=== PATIENT | female | born 1980 | race Caucasian/White ===

== ENCOUNTER 2024-07-03 12:36 | Emergency (ER) | payer MEDICARE, MEDICAID, SELFPAY ==
[2024-07-03 12:51] VITALS: BP 129/81; PULSE 85; RESP 18; TEMP 36.6; O2SAT 96; BMI 31.6
--- NOTE | 2024-07-03 13:09 | ED.GENADULT ---
HPI - General Adult General Chief complaint: General Medical Stated complaint: Medical clearance Time Seen by Provider: 07/03/24 19:05 Source: patient Mode of arrival: ambulatory Limitations: no limitations History of Present Illness ED Provider: DR. Farias HPI narrative: A 43-year-old female was discharged from [facility] seeking rehab of substance abuse sent to our hospital for further medical clearance patient witnessed to have a seizure yesterday, known history of seizure patient take Keppra 500 mg b.i.d., patient declined any recent use of substance abuse. No SI, no HI, no hallucination. Related Data Home Medications ?Medication ?Instructions ?Recorded ?Confirmed clonidine HCl 0.2 mg tablet 0.2 mg PO BID 07/04/24 07/04/24 gabapentin 800 mg tablet 800 mg PO TID 07/04/24 07/04/24 levetiracetam 500 mg tablet 500 mg PO BID 07/04/24 07/04/24 levothyroxine 125 mcg tablet 125 mcg PO DAILY 07/04/24 07/04/24 methadone 10 mg/mL oral concentrate 135 mg PO DAILY 07/04/24 07/04/24 mirtazapine 45 mg tablet 45 mg PO BEDTIME 07/04/24 07/04/24 prazosin 2 mg capsule 2 mg PO BEDTIME 07/04/24 07/04/24 quetiapine 100 mg tablet 100 mg PO BEDTIME 07/04/24 07/04/24 Allergies Allergy/AdvReac Type Severity Reaction Status Date / Time Penicillins Allergy Unknown Verified 07/03/24 12:56 Review of Systems Review of Systems: All other systems are reviewed and are negative Constitutional: Reports as per HPI and Reports no additional constitutional complaints Eyes: Reports as per HPI and Reports no additional eye complaints Reports system reviewed and no additional complaints, except as documented Cardiovascular: Reports as per HPI and Reports no additional cardiovascular complaints Respiratory: Reports as per HPI and Reports no additional respiratory complaints Gastrointestinal: Reports as per HPI and Reports no additional gastrointestinal complaints Genitourinary: Reports no additional female genitourinary complaints Musculoskeletal: Reports no additional musculoskeletal complaints Skin/Breast: Reports system reviewed and no additional complaints, except as docu Psychiatric: Reports no additional psychiatric complaints Endocrine: Reports no additional endocrine complaints Hematologic/Lymphatic: Reports no additional hematologic/lymphatic complaints Allergic/Immunologic: Reports no additional allergic/immunologic complaints Reports system reviewed and no additional complaints, except as documented and Reports Abnormal speech present [facility] Social History Social History Unable to assess alcohol history related to: Unable to respond Smoked in Last 30 Days: Yes Use of substances other than those prescribed or required for medical reasons: Yes Substance Use Type: Marijuana and Other Substance Use Frequency: Chronic Longstanding Any prior treatment program specific to substance use: Yes Advance Directives: No Advance Directives Information Provided: No Do you have a plan to hurt others: No Plan Patient : No Physical Exam ED Vital Signs: Vital Signs - 24 hr 07/03/24 12:51 07/03/24 19:32 07/03/24 22:02 Temperature 97.9 F 97.6 F 97.9 F Pulse Rate 85 69 58 Respiratory Rate 18 18 18 Blood Pressure 129/81 91/62 97/64 Pulse Oximetry 96 98 95 Oxygen Delivery Method Room Air Room Air Room Air 07/04/24 02:16 07/04/24 06:03 07/04/24 08:00 Temperature 97.6 F 98.6 F Pulse Rate 82 85 91 Respiratory Rate 16 12 18 Blood Pressure 99/57 L 102/62 106/67 Pulse Oximetry 95 95 94 Oxygen Delivery Method Room Air Room Air Room Air 07/04/24 10:00 Temperature 99.0 F Pulse Rate 94 Respiratory Rate 18 Blood Pressure 108/71 Pulse Oximetry 96 Oxygen Delivery Method Room Air BMI result Body Mass Index 31.6 Vital signs have been reviewed and appear to be correct. Blood pressure elevated. Heart rate normal. Respiratory rate normal. Temperature normal. Oxygen saturation normal. Appearance: Alert. Oriented X3. No acute distress. Head: Normal external exam. Normocephalic. Atraumatic. No Ramírez signs noted. No raccoon eyes noted Eyes: PERRLA. EOMI. Conjunctiva and sclera normal. Eyelids normal. ENT: TM's Normal. Pharynx normal. Uvula midline. Moist mucous membranes. No trismus noted. No drooling noted. No muffled voice noted. Neck: Normal inspection. Neck supple. FROM. No adenopathy. Thyroid Normal. No meningeal signs. No neck mass noted. CVS: Normal heart rate and rhythm. Heart sound normal. No murmurs noted. Pulses normal throughout. Respiratory: No respiratory distress. Painless inspiration. Breath sounds normal. No wheezes/rales/rhonchi noted. Chest nontender. No accessory muscle usage noted or decreased air movement noted. Abdomen: Soft and nontender. Bowel sounds normal in all 4 quadrants. No distention noted. No organomegaly noted. No visible injury noted. Back: No CVA tenderness. Full range of motion noted. Skin: Skin warm and dry. Normal skin color. Normal skin turgor. No rashes/lesions/lacerations noted. Extremities: No lower extremity edema. Extremities exhibit normal range of motion. Extremities nontender. Neuro: Oriented X 3. Cranial nerve exam: II-XII are grossly intact No motor deficit. No sensory deficit. Reflexes normal. Course Course Course Narrative: RME: 43-year-old female sent from [facility] for suspicion of drug use. Patient denies having drug use but states she was having a seizure. Patient takes Keppra on Valium. [facility] denies any seziure activity. Patient denies using drugs. Patient is presently alert oriented x3. Labs ordered. Reevaluation(s) Reevaluation #1: Medical clearance for rehab placement. Start physician observation. Time: 20:00 Reevaluation #2: Berkley Fine PA-C: 0800 07/04/2024 - Observation continues. Patient awaiting assistance with possible detox placement. Medications Administered Generic Name Dose Route Start Last Admin Trade Name Freq PRN Reason Stop Dose Admin Methadone HCl 135 mg 07/04/24 09:45 07/04/24 11:08 Methadone Hcl 20 Mg/2 Ml Oral.Conc PO 135 mg DAILY AGUSTINA Administration Medical Decision Making Differential Diagnosis Differential Diagnoses: The differential diagnosis associated with the presentation includes (SI, HI, acute psychosis, substance abuse, medical clearance, severe anemia.) Admission/Observation Consideration of admission/observation: Escalation of care including admission/observation considered Lab Data MDM Lab Attestation statement: I reviewed the patient's lab results. 07/03/24 19:15 07/03/24 19:15 Labs: Lab Results 07/03/24 07/03/24 Range/Units 19:15 19:31 WBC 6.4 (4.8-10.8) X10*3/uL RBC 4.18 L (4.20-5.50) X10*6/uL Hgb 12.2 (12.0-16.0) g/dl Hct 36.1 L (37.0-47.0) % MCV 86.4 (80.0-98.0) fL MCH 29.2 (27.0-33.0) pg MCHC 33.8 (31.0-35.0) g/dl RDW 13.4 (11.0-16.0) % Plt Count 350 (160-400) X10*3/uL MPV 8.7 L (9.4-12.3) fL Immature Gran % (Auto) 0.3 (0.0-0.4) % Neut % (Auto) 55.5 (45-73) % Lymph % (Auto) 31.3 (20-40) % [place] % (Auto) 8.7 (2-11) % Eos % (Auto) 3.6 (0-4) % Baso % (Auto) 0.6 (0-2) % Lymph # (Auto) 2.0 (1.2-4.9) X10*3/uL [place] # (Auto) 0.6 (0.1-1.2) X10*3/uL Eos # (Auto) 0.2 (0.0-0.4) X10*3/uL Baso # (Auto) 0.0 (0.0-0.2) X10*3/uL Abs Immat Gran (auto) 0.02 (0.00-0.03) X10*3/uL Absolute Neuts (auto) 3.6 (2.0-8.3) x10*3/uL Absolute Nucleated RBC 0.000 (0.0-0.012) X10*3/uL Nucleated RBC % (auto) 0.0 (0.0-0.2) /100WBC Sodium 143 (135-145) mmol/L Potassium 3.7 (3.3-5.1) mmol/L Chloride 107 (96-108) mmol/L Carbon Dioxide 28 (22-29) mmol/L Anion Gap 12 (12-20) BUN 14 (9-16) mg/dL Creatinine 0.89 (0.5-1.4) mg/dL Estim Creat Clear Calc 76.7 Estimated GFR > 60 Random Glucose 146 H (60-115) mg/dL Calcium 9.3 (8.4-10.2) mg/dL Magnesium 2.0 (1.6-2.6) mg/dL Total Bilirubin 0.4 (0.0-1.0) mg/dL AST 96 H (5-31) U/L ALT 87 H (0-31) U/L Alkaline Phosphatase 171 H (39-117) U/L Total Protein 7.8 (6.5-8.0) g/dL Albumin 3.9 (3.5-5.0) g/dL Beta HCG, Quant < 2 mIU/mL Urine Color Dark Yellow Urine Appearance Cloudy Urine pH 6.5 (5.0-9.0) Ur Specific [place] 1.025 (1.005-1.025) Urine Protein Trace (Neg-Trace) mg/dL Urine Glucose (UA) Negative (Negative) mg/dL Urine Ketones Negative (Negative) mg/dL Urine Blood Negative (Negative) Urine Nitrite Negative (Negative) Ur Leukocyte Esterase Small (1+) H (Negative) Urine RBC 0-2 (0-2) /HPF Urine WBC 6-10 H (0-5) /HPF Ur Squamous Epith Cells 11-20 (0-2) /HPF Urine Bacteria 4+ (None Seen) Hyaline Casts 0-2 (0-2) /LPF Urine Opiates Screen Not Detected (Not Detect) Ur Buprenorphine Scrn Not Detected (Not Detect) ng/mL Ur Oxycodone Screen Not Detected (Not Detect) ng/mL Urine Methadone Screen Positive H (Not Detect) ng/mL Urine Fentanyl Screen Not Detected (Not Detect) Ur Barbiturates Screen Not Detected (Not Detect) Ur Phencyclidine Scrn POSITIVE H (Not Detect) Ur Amphetamines Screen Not Detected (Not Detect) U Benzodiazepines Scrn POSITIVE H (Not Detect) Urine Cocaine Screen Not Detected (Not Detect) U Marijuana (THC) Screen Not Detected (Not Detect) Ethyl Alcohol < 10 mg/dL Discharge Plan Discharge Clinical Impression: Substance abuse Patient Disposition: Still a Patient Prescriptions: No Action levetiracetam 500 mg tablet 500 mg PO BID quetiapine 100 mg tablet 100 mg PO BEDTIME clonidine HCl 0.2 mg tablet 0.2 mg PO BID gabapentin 800 mg tablet 800 mg PO TID levothyroxine 125 mcg tablet 125 mcg PO DAILY mirtazapine 45 mg tablet 45 mg PO BEDTIME prazosin 2 mg capsule 2 mg PO BEDTIME methadone 10 mg/mL Concentrate 135 mg PO DAILY Print Language: Lao
[2024-07-03 19:21] LABS: MANUAL DIFF FLAG NO
[2024-07-03 19:32] VITALS: BP 91/62; PULSE 69; RESP 18; TEMP 36.4; O2SAT 98
--- NOTE | 2024-07-03 19:35 | PC.NURSE ---
Patient ambulated to bathroom with steady gait. Urine specimen collected and sent to lab for analysis. Awaiting results. senior research project manager (Cindy) present.
[2024-07-03 19:38] LABS: Basophils Percent Auto 0.6 % (0-2); Eosinophils Absolute Auto 0.2 X10*3/uL (0.0-0.4); Eosinophils Percent Auto 3.6 % (0-4); Hematocrit 36.1 % (37.0-47.0); Hemoglobin 12.2 g/dl (12.0-16.0); Imm Gran Abs Auto 0.02 X10*3/uL (0.00-0.03); Imm Gran Pct Auto 0.3 % (0.0-0.4); Lymphocytes Percent Auto 31.3 % (20-40); Mean Corpuscular HGB Conc 33.8 g/dl (31.0-35.0); Mean Corpuscular Hemoglobin 29.2 pg (27.0-33.0); Mean Corpuscular Volume 86.4 fL (80.0-98.0); Mean Platelet Volume 8.7 fL (9.4-12.3); Monocytes Absolute Auto 0.6 X10*3/uL (0.1-1.2); Monocytes Percent Auto 8.7 % (2-11); Neutrophils Absolute Auto 3.6 x10*3/uL (2.0-8.3); Neutrophils Percent Auto 55.5 % (45-73); Platelet Count 350 X10*3/uL (160-400); Red Blood Count 4.18 X10*6/uL (4.20-5.50); Red Cell Distribution Width 13.4 % (11.0-16.0); White Blood Count 6.4 X10*3/uL (4.8-10.8)
[2024-07-03 19:39] LABS: Appearance Urine Cloudy; Color Urine Dark Yellow; Glucose Urine UA Negative (Negative); Leukocyte Esterase Urine Small (1+) (Negative); Nitrite Urine Negative (Negative); PH 6.5 (5.0-9.0); Specific Gravity - Urine 1.025 (1.005-1.025); UMIC TRIGGER UACC YES; Urine Blood Negative (Negative); Urine Ketones Negative (Negative); Urine Protein Trace mg/dL (Neg-Trace)
--- NOTE | 2024-07-03 19:41 | MHC.EDTECH ---
pt belongings in decon (multiple trash bags, cardboard box, luggages)
[2024-07-03 19:50] LABS: Amphetamine Screen Urine Not Detected (Not Detect); Barbiturates, Urine Not Detected (Not Detect); Benzodiazepines Screen Urine POSITIVE (Not Detect); Buprenorphine Scr Not Detected (Not Detect); Cannabinoid Screen Urine Not Detected (Not Detect); Cocaine Screen Urine Not Detected (Not Detect); Fentanyl, urine Not Detected (Not Detect); Methadone Screen, Urine Positive (Not Detect); Opiate Screen Urine Not Detected (Not Detect); Oxycodone Screen Urine Not Detected (Not Detect); Phencyclidine Screen Urine POSITIVE (Not Detect)
[2024-07-03 20:04] LABS: Albumin Level 3.9 g/dL (3.5-5.0); Alkaline Phosphatase 171 U/L (39-117); Aspartate Amino Transferase 96 U/L (5-31); Bilirubin Total 0.4 mg/dL (0.0-1.0); Blood Urea Nitrogen 14 mg/dL (9-16); Calcium 9.3 mg/dL (8.4-10.2); Creatinine Clr Calc Pharmacy 76.7; Estimated Glomerular Filt Rate > 60; Ethanol < 10 mg/dL; Glucose Random 146 mg/dL (60-115); Total Protein 7.8 g/dL (6.5-8.0)
[2024-07-03 20:16] LABS: Bacteria Urine 4+ (None Seen); Hyaline Casts Urine 0-2 /LPF (0-2); RBC Urine 0-2 /HPF (0-2); UACC Culture Trigger YES
--- NOTE | 2024-07-03 20:43 | PC.NURSE ---
Urine toxicology positive for PCP, Methadone, & Benzodiazepenes. Plan for the patient to meet with addiction medicine team tomorrow morning. Patient denies complaints at this time. Care ongoing by this RN & Cindy (home visit field care manager).
[2024-07-03 21:30] LABS: Alanine Aminotransferase 87 U/L (0-31); Anion Gap 12 (12-20); Carbon Dioxide 28 mmol/L (22-29); Chloride 107 mmol/L (96-108); Potassium 3.7 mmol/L (3.3-5.1); Sodium 143 mmol/L (135-145)
[2024-07-03 22:02] VITALS: BP 97/64; PULSE 58; RESP 18; TEMP 36.6; O2SAT 95
[2024-07-03 22:23] LABS: HCG Quantitative < 2 mIU/mL
--- NOTE | 2024-07-04 01:36 | PC.NURSE ---
Patient requested and given warm blanket. No other needs at this time. Care ongoing.
[2024-07-04 02:16] VITALS: BP 99/57; PULSE 82; RESP 16; TEMP 36.4; O2SAT 95
--- NOTE | 2024-07-04 02:30 | PC.NURSE ---
Patient has been sleeping the majority of this RN's shift. No acute distress noted. Respirations even/unlabored. Seizure pads/precautions remain in place. Awaiting addiction medicine consult in the morning. Arousable to verbal stimuli. Vital signs updated. Care ongoing by this RN.
[2024-07-04 06:03] VITALS: BP 102/62; PULSE 85; RESP 12; O2SAT 95
--- NOTE | 2024-07-04 06:08 | PC.NURSE ---
vital signs remain stable/up to date at this time. nsr on the tobacco buyer. pt continues to rest/sleep in no apparent distress. on RA w/o difficulty. no sob/wob noted. respirations even/unlabored. seizure precautions remain in place. pending addiction medicine consult at this time. plan of care ongoing. call ramirez placed within reach.
--- NOTE | 2024-07-04 07:12 | PC.NURSE ---
belongings/non-controlled medications found in patient's room. belongings obtained/placed in locker #11. rest of belongings still remain in decon at this time.
--- NOTE | 2024-07-04 07:16 | PC.NURSE ---
attempted to verify methadone dose at [facility] in [place] twice at this time. every time phone call was transferred to RN, someone hung up the phone. call back number provided to controls project engineer at this time.
[2024-07-04 08:00] VITALS: BP 106/67; PULSE 91; RESP 18; TEMP 37; O2SAT 94
--- NOTE | 2024-07-04 08:04 | PC.NURSE ---
This RN spoke w/ JUANA Sebastian at [facility] in [place] in regards to methadone dose at this time. Per Romulo, pt was last dosed on 06/28 @ 0808 w/ 135mg. Romulo then proceeded to state that pt was provided w/ 8, take home bottles of methadone. Per patient, [facility] did not provide patient w/ take home methadone when leaving facility. Attempted to call [facility] - no answer at this time. Voicemail left - will reattempt.
--- NOTE | 2024-07-04 08:30 | HE.PHANOTE ---
METHADONE CONFIRMATION FORM RECEIVED PATIENT GOT 135MG 07/03 FROM [facility]. PATIENT GOT 8 BOTTLES ON 06/28 FROM [facility]
--- NOTE | 2024-07-04 08:31 | PC.NURSE ---
pt speaking w/ debt recovery officer at this time. plan of care ongoing.
--- NOTE | 2024-07-04 08:46 | MHC.RECOVSUP ---
Rod Pointer Note Patient seen in ED Consult requested for?ATS referral? Current substance use reported by patient: PCP?? Currently on MAURO or MOUD Yes: Methadone Plan:? Patient referred to ATS
[2024-07-04 10:00] VITALS: BP 108/71; PULSE 94; RESP 18; TEMP 37.2; O2SAT 96
--- NOTE | 2024-07-04 10:28 | PHA.MEDREC ---
Addendum entered by Hiren Garza RPh 07/04/24 10:49: MED REC CHECKED BY [facility] Original Note: Pharmacy Consult ? Medication Reconciliation Pharmacy reviewed med rec done by nursing. Claims matches what was confirmed.Clonidine 0.2mg had no directions and I called patients pharmacy and was able to confirm the directions states there they should be taking it 1 BID.
[2024-07-04] MEDS: methADONE HCl 20 MG/2 ML ORAL.CONC 135 MG PO (11:08)
--- NOTE | 2024-07-04 11:08 | PC.NURSE ---
delay in methadone administration d/t medication not being verified. medication now administered per provider order. pt having care team consult completed at this time.
--- NOTE | 2024-07-04 11:49 | MHC.RECOVSUP ---
Education Diagnostician Note Patient seen in ED Consult requested for ATS referral? Current substance use reported by patient: PCP Type?Amount: Smoked... past 1 month Currently on MAURO or MOUD Yes: 135mgs Methadone Plan:? Patient has now declined ATS referral to [facility]. (Her application is currently being reviewed by the nurse), and would instead like to be transported to [place]. Will make [facility] aware if they call me back.
[2024-07-04 12:00] VITALS: BP 107/70; PULSE 95; RESP 16; TEMP 37.1; O2SAT 94
[2024-07-04] MEDS: Gabapentin 400 MG CAPSULE 800 MG PO (12:17)
[2024-07-04] MEDS: levETIRAcetam 500 MG TABLET PO (12:17)
[2024-07-04] MEDS: diazePAM 2 MG TABLET PO (12:17)
--- NOTE | 2024-07-04 12:18 | MHC.CARE ---
Pt does not meet criteria for IPLOC and does not present as an imminent risk. Pt declined all services.
[2024-07-04] MEDS: Naloxone HCl Nasal TAKE HOME 4 MG SPRAY 8 MG NOSTRILALT (12:24)
[2024-07-04 13:10] VITALS: BP 107/70; PULSE 95; RESP 16; TEMP 37.1; O2SAT 94
--- NOTE | 2024-07-04 13:34 | MHC.RECOVRN ---
Pt declined services and was sent to [address] [place] [address] in [place] via [employer].
== END 2024-07-04 13:11 | disposition home or self-care (01) ==
PROVIDERS: Physician Assistant; Emergency Provider Emergency Medicine
DX: F19.10 Other psychoactive substance abuse, uncomplicated (principal); Z02.2 Encounter for examination for admission to residential institution; F11.20 Opioid dependence, uncomplicated; Z79.899 Other long term (current) drug therapy
CPT/HCPCS: 36415; 80053; 80307; 81001; 83735; 84702; 85025; 87086; 99284; 99285; S9485

== ENCOUNTER 2025-03-24 14:40 | Emergency (ER) | payer MEDICARE, MEDICAID, SELFPAY ==
[2025-03-24 14:50] VITALS: BP 101/65; PULSE 71; RESP 12; TEMP 36.1; O2SAT 96; BMI 30.4
--- NOTE | 2025-03-24 14:50 | ED.GENADULT ---
HPI - General Adult General Chief complaint: Medical Clearance Stated complaint: medical clearence Time Seen by Provider: 03/24/25 16:35 Related Data Home Medications ?Medication ?Instructions ?Recorded ?Confirmed clonidine HCl 0.2 mg tablet 0.2 mg PO BID 07/04/24 07/04/24 gabapentin 800 mg tablet 800 mg PO TID 07/04/24 07/04/24 levetiracetam 500 mg tablet 500 mg PO BID 07/04/24 07/04/24 levothyroxine 125 mcg tablet 125 mcg PO DAILY 07/04/24 07/04/24 methadone 10 mg/mL oral concentrate 135 mg PO DAILY 07/04/24 07/04/24 mirtazapine 45 mg tablet 45 mg PO BEDTIME 07/04/24 07/04/24 prazosin 2 mg capsule 2 mg PO BEDTIME 07/04/24 07/04/24 quetiapine 100 mg tablet 100 mg PO BEDTIME 07/04/24 07/04/24 Allergies Allergy/AdvReac Type Severity Reaction Status Date / Time Penicillins Allergy Unknown Verified 03/24/25 14:51 [facility] Social History Social History Unable to assess alcohol history related to: Unable to respond Substance Use Type: Marijuana and Other Advance Directives: No Advance Directives Information Provided: No Physical Exam ED Vital Signs: Vital Signs - 24 hr 03/24/25 14:50 03/24/25 16:57 03/24/25 16:59 Temperature 97 F 97.6 F 98.6 F Pulse Rate 71 70 67 Respiratory Rate 12 16 16 Blood Pressure 101/65 108/62 98/64 Pulse Oximetry 96 96 94 Oxygen Delivery Method Room Air Room Air BMI result Body Mass Index 30.4 Course Course Course Narrative: Rapid medical examination performed in triage by Berkley Fine PA-C. Patient is a 44 year old assigned female at presenting to the emergency department for medical clearance. Patient states Miracle is concerned she took too much of her medication and requested she come to the ER to be cleared. Patient states that she is prescribed valium and takes it as directed. Detailed physical exam and review of systems are deferred to the dobby loom weaver. EKG and labs ordered. Patient placed back in the waiting room pending room availability and results. Medications Administered Generic Name Dose Route Start Last Admin Trade Name Freq PRN Reason Stop Dose Admin Sodium Chloride 1,000 mls @ 999 mls/hr 03/24/25 19:45 03/24/25 19:57 Ns IV 03/24/25 20:45 Not Given .Q1H1M [facility] Sodium Chloride 1,000 mls @ 999 mls/hr 03/24/25 19:45 03/24/25 19:57 Ns IV 03/24/25 20:45 Not Given .Q1H1M [facility] Medical Decision Making Lab Data 03/24/25 15:01 03/24/25 15:01 Labs: Lab Results 03/24/25 03/24/25 Range/Units 15:01 15:08 WBC 8.0 (4.8-10.8) X10*3/uL RBC 4.44 (4.20-5.50) X10*6/uL Hgb 12.9 (12.0-16.0) g/dl Hct 39.1 (37.0-47.0) % MCV 88.1 (80.0-98.0) fL MCH 29.1 (27.0-33.0) pg MCHC 33.0 (31.0-35.0) g/dl RDW 14.3 (11.0-16.0) % Plt Count 249 D (160-400) X10*3/uL MPV 9.2 L (9.4-12.3) fL Immature Gran % (Auto) 0.4 (0.0-0.4) % Neut % (Auto) 53.8 (45-73) % Lymph % (Auto) 35.3 (20-40) % [place] % (Auto) 6.9 (2-11) % Eos % (Auto) 3.1 (0-4) % Baso % (Auto) 0.5 (0-2) % Lymph # (Auto) 2.8 (1.2-4.9) X10*3/uL [place] # (Auto) 0.6 (0.1-1.2) X10*3/uL Eos # (Auto) 0.3 (0.0-0.4) X10*3/uL Baso # (Auto) 0.0 (0.0-0.2) X10*3/uL Abs Immat Gran (auto) 0.03 (0.00-0.03) X10*3/uL Absolute Neuts (auto) 4.3 (2.0-8.3) x10*3/uL Absolute Nucleated RBC 0.000 (0.0-0.012) X10*3/uL Nucleated RBC % (auto) 0.0 (0.0-0.2) /100WBC Sodium 143 (135-145) mmol/L Potassium 4.1 (3.3-5.1) mmol/L Chloride 105 (96-108) mmol/L Carbon Dioxide 27 (22-29) mmol/L Anion Gap 15 (12-20) BUN 16 (9-16) mg/dL Creatinine 1.20 (0.5-1.4) mg/dL Estim Creat Clear Calc 55.2 Estimated GFR 49 Random Glucose 138 H (60-115) mg/dL Calcium 9.4 (8.4-10.2) mg/dL Magnesium 2.0 (1.6-2.6) mg/dL Total Bilirubin 0.4 (0.0-1.0) mg/dL AST 58 H (5-31) U/L ALT 57 H (0-31) U/L Alkaline Phosphatase 88 (39-117) U/L Total Protein 8.4 H (6.5-8.0) g/dL Albumin 4.7 (3.5-5.0) g/dL Urine Opiates Screen Not Detected (Not Detect) Ur Buprenorphine Scrn Not Detected (Not Detect) ng/mL Ur Oxycodone Screen Not Detected (Not Detect) ng/mL Urine Methadone Screen Positive H (Not Detect) ng/mL Urine Fentanyl Screen Not Detected (Not Detect) Ur Barbiturates Screen Not Detected (Not Detect) Ur Phencyclidine Scrn POSITIVE H (Not Detect) Ur Amphetamines Screen Not Detected (Not Detect) U Benzodiazepines Scrn POSITIVE H (Not Detect) Urine Cocaine Screen Not Detected (Not Detect) U Marijuana (THC) Screen Not Detected (Not Detect) Ethyl Alcohol < 10 mg/dL Discharge Plan Discharge Clinical Impression: Accidental drug overdose Patient Disposition: Home, Self-Care Prescriptions: No Action levetiracetam 500 mg tablet 500 mg PO BID quetiapine 100 mg tablet 100 mg PO BEDTIME clonidine HCl 0.2 mg tablet 0.2 mg PO BID gabapentin 800 mg tablet 800 mg PO TID levothyroxine 125 mcg tablet 125 mcg PO DAILY mirtazapine 45 mg tablet 45 mg PO BEDTIME prazosin 2 mg capsule 2 mg PO BEDTIME methadone 10 mg/mL Concentrate 135 mg PO DAILY Referrals: Berry Ortega MD [Primary Care Provider, Internal Medicine] - 03/27/25 Print Language: Lao
[2025-03-24 15:05] LABS: MANUAL DIFF FLAG NO
[2025-03-24 15:08] LABS: Hematocrit 39.1 % (37.0-47.0); Hemoglobin 12.9 g/dl (12.0-16.0); Imm Gran Abs Auto 0.03 X10*3/uL (0.00-0.03); Imm Gran Pct Auto 0.4 % (0.0-0.4); Lymphocytes Absolute Auto 2.8 X10*3/uL (1.2-4.9); Mean Corpuscular HGB Conc 33.0 g/dl (31.0-35.0); Mean Corpuscular Hemoglobin 29.1 pg (27.0-33.0); Mean Corpuscular Volume 88.1 fL (80.0-98.0); NRBC Abs Auto 0.000 X10*3/uL (0.0-0.012); NRBC Pct Auto 0.0 /100WBC (0.0-0.2); Platelet Count 249 X10*3/uL (160-400); Red Blood Count 4.44 X10*6/uL (4.20-5.50); White Blood Count 8.0 X10*3/uL (4.8-10.8)
[2025-03-24 15:27] LABS: Cannabinoid Screen Urine Not Detected (Not Detect)
[2025-03-24 15:47] LABS: Alanine Aminotransferase 57 U/L (0-31); Albumin Level 4.7 g/dL (3.5-5.0); Alkaline Phosphatase 88 U/L (39-117); Anion Gap 15 (12-20); Aspartate Amino Transferase 58 U/L (5-31); Blood Urea Nitrogen 16 mg/dL (9-16); Calcium 9.4 mg/dL (8.4-10.2); Carbon Dioxide 27 mmol/L (22-29); Chloride 105 mmol/L (96-108); Creatinine Clr Calc Pharmacy 55.2; Estimated Glomerular Filt Rate 49; Magnesium 2.0 mg/dL (1.6-2.6); Potassium 4.1 mmol/L (3.3-5.1); Sodium 143 mmol/L (135-145); Total Protein 8.4 g/dL (6.5-8.0)
[2025-03-24 16:57] VITALS: BP 108/62; PULSE 70; RESP 16; TEMP 36.4; O2SAT 96
[2025-03-24 16:59] VITALS: BP 98/64; PULSE 67; RESP 16; TEMP 37; O2SAT 94
--- NOTE | 2025-03-24 17:00 | PC.NURSE ---
Pt to [facility] from triage, resting quietly on stretcher with eyes closed. Resp even/unlabored. Pt very lethargic, but arousable to name/touch and able to follow commands.
--- NOTE | 2025-03-24 19:27 | PC.NURSE ---
this rn assumed care of pt , pt resting in stretcher, isi, at bedside, pt appears sleeping but wakes to name to have conversation
--- NOTE | 2025-03-24 19:35 | ED.MEDCLEAR ---
HPI - Medical Clearance General Chief complaint: Medical Clearance Stated complaint: medical clearence Time Seen by Provider: 03/24/25 16:35 History of Present Illness HPI Narrative: Patient is a 44-year-old female presents today they were concerned she took too much Valium. Patient denies any suicidal homicidal ideations. No fever no chills no chest pain or shortness breath no systemic complaints. Patient denies using other recreational drugs. From home. Denies drinking. Claims he last took her Valium was in the morning. Related Information Home Medications ?Medication ?Instructions ?Recorded ?Confirmed clonidine HCl 0.2 mg tablet 0.2 mg PO BID 07/04/24 07/04/24 gabapentin 800 mg tablet 800 mg PO TID 07/04/24 07/04/24 levetiracetam 500 mg tablet 500 mg PO BID 07/04/24 07/04/24 levothyroxine 125 mcg tablet 125 mcg PO DAILY 07/04/24 07/04/24 methadone 10 mg/mL oral concentrate 135 mg PO DAILY 07/04/24 07/04/24 mirtazapine 45 mg tablet 45 mg PO BEDTIME 07/04/24 07/04/24 prazosin 2 mg capsule 2 mg PO BEDTIME 07/04/24 07/04/24 quetiapine 100 mg tablet 100 mg PO BEDTIME 07/04/24 07/04/24 Allergies Allergy/AdvReac Type Severity Reaction Status Date / Time Penicillins Allergy Unknown Verified 03/24/25 14:51 Review of Systems Review of Systems: No chest pain or shortness breath no diaphoresis PMFSH Past Medical History Attestation statement: The following information was validated with the patient. Social History Social History Unable to assess alcohol history related to: Unable to respond Substance Use Type: Marijuana and Other Advance Directives: No Advance Directives Information Provided: No Physical Exam Exam: Exam: Appearance: Alert. Oriented X3. No acute distress. Eyes: Pupils equal, round and reactive to light. ENT: Pharynx normal. Neck: Normal inspection. Neck supple. No lymph nodes noted. No crepitus CVS: Normal heart rate and rhythm. Pulses normal. Normal S1 and S2 Respiratory: No respiratory distress. Breath sounds normal. No Wheezing. No rales Abdomen: Soft and nontender. No rigidity. No distention. good BS x4 Skin: Skin warm and dry. Normal skin color. Normal skin turgor. Extremities: No lower extremity edema. Neurovascular intact to all extremities. No Lacerations. No Rash Neuro: Oriented X 3. No motor deficit. No sensory deficit. Moving all extermities. No slurred speech Vital Signs: Vital Signs: Last Vital Signs Temp 98.6 F 03/24/25 16:59 Pulse 67 03/24/25 16:59 Resp 16 03/24/25 16:59 BP 98/64 03/24/25 16:59 Pulse Ox 94 03/24/25 16:59 O2 Del Method Room Air 03/24/25 16:59 BMI result Body Mass Index 30.4 Medications Administered Generic Name Dose Route Start Last Admin Trade Name Freq PRN Reason Stop Dose Admin Sodium Chloride 1,000 mls @ 999 mls/hr 03/24/25 19:45 03/24/25 19:57 Ns IV 03/24/25 20:45 Not Given .Q1H1M AGUSTINA Sodium Chloride 1,000 mls @ 999 mls/hr 03/24/25 19:45 03/24/25 19:57 Ns IV 03/24/25 20:45 Not Given .Q1H1M AGUSTINA Medical Decision Making Medical Decision Making [facility] Narrative: Well-appearing no acute distress lethargic patient's white count is normal. Electrolytes fairly unremarkable. Patient's tox screen came back positive for methadone which she is on. Positive for PCP positive for benzos. Will give additional IV fluids and hydrate. Patient's alcohol was less than 10. In stable condition. Patient monitor in the ER for few hours. Is awake alert no distress. Wants to go with family. Patient is in stable condition not suicidal not homicidal. Differential Diagnosis Differential Diagnoses: The differential diagnosis associated with the presentation includes Admission/Observation Consideration of admission/observation: Escalation of care including admission/observation considered Consult Healthcare Provider Additional history obtained through patient's family Lab Data [facility] Lab Attestation statement: I reviewed the patient's lab results. 03/24/25 15:01 03/24/25 15:01 Labs: Lab Results 03/24/25 03/24/25 Range/Units 15:01 15:08 WBC 8.0 (4.8-10.8) X10*3/uL RBC 4.44 (4.20-5.50) X10*6/uL Hgb 12.9 (12.0-16.0) g/dl Hct 39.1 (37.0-47.0) % MCV 88.1 (80.0-98.0) fL MCH 29.1 (27.0-33.0) pg MCHC 33.0 (31.0-35.0) g/dl RDW 14.3 (11.0-16.0) % Plt Count 249 D (160-400) X10*3/uL MPV 9.2 L (9.4-12.3) fL Immature Gran % (Auto) 0.4 (0.0-0.4) % Neut % (Auto) 53.8 (45-73) % Lymph % (Auto) 35.3 (20-40) % [place] % (Auto) 6.9 (2-11) % Eos % (Auto) 3.1 (0-4) % Baso % (Auto) 0.5 (0-2) % Lymph # (Auto) 2.8 (1.2-4.9) X10*3/uL [place] # (Auto) 0.6 (0.1-1.2) X10*3/uL Eos # (Auto) 0.3 (0.0-0.4) X10*3/uL Baso # (Auto) 0.0 (0.0-0.2) X10*3/uL Abs Immat Gran (auto) 0.03 (0.00-0.03) X10*3/uL Absolute Neuts (auto) 4.3 (2.0-8.3) x10*3/uL Absolute Nucleated RBC 0.000 (0.0-0.012) X10*3/uL Nucleated RBC % (auto) 0.0 (0.0-0.2) /100WBC Sodium 143 (135-145) mmol/L Potassium 4.1 (3.3-5.1) mmol/L Chloride 105 (96-108) mmol/L Carbon Dioxide 27 (22-29) mmol/L Anion Gap 15 (12-20) BUN 16 (9-16) mg/dL Creatinine 1.20 (0.5-1.4) mg/dL Estim Creat Clear Calc 55.2 Estimated GFR 49 Random Glucose 138 H (60-115) mg/dL Calcium 9.4 (8.4-10.2) mg/dL Magnesium 2.0 (1.6-2.6) mg/dL Total Bilirubin 0.4 (0.0-1.0) mg/dL AST 58 H (5-31) U/L ALT 57 H (0-31) U/L Alkaline Phosphatase 88 (39-117) U/L Total Protein 8.4 H (6.5-8.0) g/dL Albumin 4.7 (3.5-5.0) g/dL Urine Opiates Screen Not Detected (Not Detect) Ur Buprenorphine Scrn Not Detected (Not Detect) ng/mL Ur Oxycodone Screen Not Detected (Not Detect) ng/mL Urine Methadone Screen Positive H (Not Detect) ng/mL Urine Fentanyl Screen Not Detected (Not Detect) Ur Barbiturates Screen Not Detected (Not Detect) Ur Phencyclidine Scrn POSITIVE H (Not Detect) Ur Amphetamines Screen Not Detected (Not Detect) U Benzodiazepines Scrn POSITIVE H (Not Detect) Urine Cocaine Screen Not Detected (Not Detect) U Marijuana (THC) Screen Not Detected (Not Detect) Ethyl Alcohol < 10 mg/dL Independent Historian Clinical information obtained from an independent historian. History obtained from or confirmed by: EMS Chronic Conditions Polysubstance abuse Social Determinants Patient?s care significantly limited by Social Determinants of Health including: Problems related to primary support group Discharge Plan Discharge Clinical Impression: Accidental drug overdose Patient Disposition: Home, Self-Care Prescriptions: No Action levetiracetam 500 mg tablet 500 mg PO BID quetiapine 100 mg tablet 100 mg PO BEDTIME clonidine HCl 0.2 mg tablet 0.2 mg PO BID gabapentin 800 mg tablet 800 mg PO TID levothyroxine 125 mcg tablet 125 mcg PO DAILY mirtazapine 45 mg tablet 45 mg PO BEDTIME prazosin 2 mg capsule 2 mg PO BEDTIME methadone 10 mg/mL Concentrate 135 mg PO DAILY Referrals: Berry Ortega MD [Primary Care Provider, Internal Medicine] - 03/27/25 Print Language: Tamazight
--- NOTE | 2025-03-24 19:56 | PC.NURSE ---
this rn attempted iv on pt x2, pt refusing other sticks at this time, dr. decker aware, plan for PO fluids at this time, sandwich and drinks given to pt.
[2025-03-24 20:32] VITALS: BP 101/65; PULSE 85; RESP 18; TEMP 37.1; O2SAT 98
== END 2025-03-24 20:33 | disposition home or self-care (01) ==
PROVIDERS: Physician Assistant Medical; Emergency Provider Emergency Medicine Emergency Medical Services; PCP Family Medicine
DX: T42.4X1A Poisoning by benzodiazepines, accidental (unintentional), initial encounter (principal); Y92.9 Unspecified place or not applicable; Z63.9 Problem related to primary support group, unspecified
CPT/HCPCS: 36415; 80053; 80307; 83735; 85025; 99283

== ENCOUNTER 2025-03-29 10:39 | Emergency (ER) | payer MEDICARE, MEDICAID, SELFPAY ==
[2025-03-29 10:48] VITALS: BP 126/76; BP 92/56; PULSE 69; PULSE 72; RESP 16; TEMP 36.8; O2SAT 93; O2SAT 95; BMI 32.7
[2025-03-29 10:57] VITALS: BP 92/56; PULSE 69; RESP 16; TEMP 36.8; O2SAT 93
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
[2025-03-29] MEDS: Lactated Ringers 1,000 ML 999 ML IV ×2 (11:46→11:47)
--- NOTE | 2025-03-29 11:46 | ECG_ITS ---
Test Reason : CHELE Blood Pressure : */* mmHG Vent. Rate : 62 BPM Atrial Rate : 62 BPM P-R Int : 148 ms QRS Dur : 72 ms QT Int : 516 ms P-R-T Axes : 49 47 42 degrees QTcB Int : 523 ms Normal sinus rhythm Low voltage QRS Nonspecific T wave abnormality Prolonged QT Abnormal ECG No previous ECGs available Referred By: Nighat Cabral Electronically Signed By: CLINT QUINONES
[2025-03-29 11:49] LABS: MANUAL DIFF FLAG NO
[2025-03-29 11:50] LABS: Hematocrit 37.7 % (37.0-47.0); Hemoglobin 12.4 g/dl (12.0-16.0); Imm Gran Abs Auto 0.02 X10*3/uL (0.00-0.03); Imm Gran Pct Auto 0.2 % (0.0-0.4); Lymphocytes Absolute Auto 2.6 X10*3/uL (1.2-4.9); Mean Corpuscular HGB Conc 32.9 g/dl (31.0-35.0); Mean Corpuscular Hemoglobin 29.3 pg (27.0-33.0); Mean Corpuscular Volume 89.1 fL (80.0-98.0); NRBC Abs Auto 0.000 X10*3/uL (0.0-0.012); NRBC Pct Auto 0.0 /100WBC (0.0-0.2); Platelet Count 218 X10*3/uL (160-400); Red Blood Count 4.23 X10*6/uL (4.20-5.50); White Blood Count 8.2 X10*3/uL (4.8-10.8)
[2025-03-29 12:09] LABS: Acetaminophen LAB < 3 mcg/mL (<30); Salicylate < 5.0 mg/dL (15-30)
[2025-03-29 12:10] LABS: Alanine Aminotransferase 57 U/L (0-31); Albumin Level 4.3 g/dL (3.5-5.0); Alkaline Phosphatase 85 U/L (39-117); Anion Gap 9 (12-20); Aspartate Amino Transferase 55 U/L (5-31); Blood Urea Nitrogen 12 mg/dL (9-16); Calcium 9.4 mg/dL (8.4-10.2); Carbon Dioxide 33 mmol/L (22-29); Chloride 106 mmol/L (96-108); Creatinine Clr Calc Pharmacy 64.2; Estimated Glomerular Filt Rate 56; Magnesium 1.7 mg/dL (1.6-2.6); Potassium 4.2 mmol/L (3.3-5.1); Sodium 144 mmol/L (135-145); Total Protein 7.4 g/dL (6.5-8.0)
--- NOTE | 2025-03-29 12:33 | PC.NURSE ---
Received call from Yasmine Davison admissions supervisor @ [facility]. Yasmine informed this RN that patient will be discharged from [facility] as she needs higher level of care then they can provide. Provider notified.
[2025-03-29 12:53] VITALS: BP 91/55; PULSE 63; RESP 18; O2SAT 95
[2025-03-29 13:07] LABS: VBG HCO3 28 mmol/L (22-26); VBG O2 % Saturation 100.0 %
[2025-03-29 13:09] LABS: Venous Blood Gas Refer to POC result
[2025-03-29] MEDS: Magnesium Sulfate/H2O 2 GM/50 ML PIGGYBACK IV (13:11)
--- OUTSIDE RECORDS SUMMARY | 2025-03-29 13:48 | XMS_ITS | Clinical Summary ---
Author Organization [facility] Address [address] [place] [address] Care Team Providers Care [employer] Name Role Phone Ref, Has No Pcp Or Primary Care Provider Unavail able Allergies Active Allergy Reactions Criticality Noted Date Comments Penicillins Anaphylaxis High 01/08/2025 Encounters Date Type Department Care Team Description 02/24/2025 12:05 PM EDT - 02/24/2025 4:18 PM EDT Emergency [facility] Emergency Department [address] [place] [id number] Sukhjinder Tena MD Lima-Babigian, Rochelle, MD Overdose of undetermined intent, initial encounter (Primary Dx) Discharge Disposition: Home or Self Care (01) 01/08/2025 3:17 PM EDT - 01/08/2025 4:08 PM EDT Emergency [facility] Emergency Department [address] [place] [address] Mina Carter MD Encounter for medical screening examination (Primary Dx); Stress reaction Discharge Disposition: Psychiatric Hospital (INPT Psych facility/unit) (65) from Last 3 Months Social History Tobacco Use Types Packs/Day Years Used Date Smoking Tobacco: Former Cigarettes Smokeless Tobacco: Never Tobacco Cessation:Counseling Given: Not Answered Alcohol Use Standard Drinks/Week Comments Not Currently 0 (1 standard drink = 0.6 oz pur e alcohol) Comments Unknown Sex and Gender Information Value Date Recorded Sex Assigned at Female 01/08/2025 3:24 PM EDT Legal Sex Female 2:36 PM EDT Gender Identity Not on file Sexual Orientation Not on file Last Filed Vital Signs Vital Sign Reading Time Taken Comments Blood Pressure 108/79 02/24/2025 12:48 PM EDT Pulse 68 02/24/2025 12:21 PM EDT Temperature 37.5 C (99.5 F) 02/24/2025 12:48 PM EDT Respiratory Rate 18 01/08/2025 2:39 PM EDT Oxygen Saturation 96% 02/24/2025 12:48 PM EDT Inhaled Oxygen Concentration - - Weight 57.2 kg (126 lb) 01/08/2025 2:39 PM EDT Height 154.9 cm (5' 1 ) 01/08/2025 2:39 PM EDT Body Mass Index 23.81 01/08/2025 2:39 PM EDT Plan of Treatment Health Maintenance Due Date Last Done Comments Cervical Cancer Screening 1981 HIV Screening 1981 HPV and Pap Smear 1981 Hepatitis C Screening 1981 Pap Smear 1981 Medicare AWV 1982 Varicella Vaccines (1 of 2 - 13+ 2-dose series) 1993 Hepatitis B Vaccines (1 of 3 - 19+ 3-dose series) 06/12 Pneumococcal Vaccine: Pediat reddy (0-5 Years) and At-Risk Patients (6-50 Years) (1 of 2 - PCV) 2000 DTaP,Tdap,and Td Vaccines (1 - Tdap) 2003 Mammogram 2021 Alcohol/Substance Use Screening 07/12/2024 Depression Screening and Follow-Up 07/12/2024 Social Drivers of Health Annual Screening 07/12/2024 COVID-19 Vaccine (2 - 2024- season) 2025 Influenza Vaccine (#1) 2025 RSV Vaccine (60+ years old a nd patients) (1 - 1-dose 75+ series) 2056 Procedures * Due to [place] state law, this organization might not be sharing negative HIV tests. Procedure Name Priority Date/Time Associated Diagnosis Comments ECG 12-LEAD STAT 02/24/2025 1:49 PM EDT CBC AUTO DIFFERENTIAL STAT 02/24/2025 1:33 PM EDT COMPREHENSIVE METABOLIC PANEL STAT 02/24/2025 1:33 PM EDT HEART & VASCULAR - SCANNED 02/24/2025 HEART & VASCULAR - SCANNED 02/24/2025 from Last 3 Months Results * Due to [place] state law, this organization might not be sharing negative HIV tests. * ECG 12 lead (02/24/2025 1:49 PM EDT) Ventricular Rate EKG 78 BPM MUSE EKG Atrial Rate 78 BPM MUSE EKG OH Interval 144 ms MUSE EKG QRS Interval 72 ms MUSE EKG QT Interval 440 ms MUSE EKG QTC Interval 501 ms MUSE EKG P [place] 60 degrees MUSE EKG R [place] 42 degrees MUSE EKG T Wave [place] 32 degrees MUSE EKG 02/24/2025 1:49 PM EDT 02/28/2025 8:40 PM EDT Impressions MUSE EKG - 02/28/2025 8:40 PM EDT SINUS RHYTHM NONSPECIFIC T WAVE ABNORMALITY CONSIDER ISCHEMIA PROLONGED QTc ABNORMAL ECG NO PREVIOUS ECGS AVAILABLE Confirmed by Willard Xavier ([id number]) on 02/28/2025 8:40:29 PM Narrative Procedure Note Willard Xavier MD - 02/28/2025 IMPRESSION: SINUS RHYTHM NONSPECIFIC T WAVE ABNORMALITY CONSIDER ISCHEMIA PROLONGED QTc ABNORMAL ECG NO PREVIOUS ECGS AVAILABLE Confirmed by Willard Xavier ([id number]) on 02/28/2025 8:40:29 PM us Sukhjinder Tena MD ECG ORDERABLES Final Res ult MUSE EKG * (ABNORMAL) CBC Auto Differential (02/24/2025 1:33 PM EDT) WBC 7.5 3.8 - 10.8 10*3/uL 02/24/2025 1:40 PM EDT [facility] RBC 4.19 3.80 - 5.10 10*6/uL 02/24/2025 1:40 PM EDT [facility] Hemoglobin 11.7 11.7 - 15.5 g/dL 02/24/2025 1:40 PM EDT [facility] Hematocrit 36.6 35.0 - 45.0 % 02/24/2025 1:40 PM EDT [facility] MCV 87.4 80.0 - 100.0 fL 02/24/2025 1:40 PM EDT [facility] MCH 27.9 27.0 - 33.0 pg 02/24/2025 1:40 PM EDT [facility] MCHC 32.0 32.0 - 36.0 g/dL 02/24/2025 1:40 PM EDT [facility] RDW 16.2(H) 11.0 - 15.0 % 02/24/2025 1:40 PM EDT [facility] Platelets 258 140 - 400 10*3/uL 02/24/2025 1:40 PM EDT [facility] MPV 9.2 7.5 - 12.5 fL 02/24/2025 1:40 PM EDT [facility] Neutrophil % 66.1 % 02/24/2025 1:40 PM EDT [facility] Immature Grans % 0.3 0.0 - 0.9 % 02/24/2025 1:40 PM EDT [facility] Lymphocyte % 25.3 % 02/24/2025 1:40 PM EDT [facility] Monocyte % 6.7 % 02/24/2025 1:40 PM EDT [facility] Eosinophil % 1.2 % 02/24/2025 1:40 PM EDT [facility] Basophil % 0.4 % 02/24/2025 1:40 PM EDT [facility] Neutrophil # 4.95 1.50 - 7.80 10*3/uL 02/24/2025 1:40 PM EDT [facility] Immature Grans # <0.03 <=0.03 10*3/uL 02/24/2025 1:40 PM EDT [facility] Lymphocyte # 1.90 0.85 - 3.90 10*3/uL 02/24/2025 1:40 PM EDT [facility] Monocyte # 0.50 0.20 - 0.95 10*3/uL 02/24/2025 1:40 PM EDT [facility] Eosinophil # 0.10 0.02 - 0.50 10*3/uL 02/24/2025 1:40 PM EDT [facility] Basophil # <0.03 0.00 - 0.20 10*3/uL 02/24/2025 1:40 PM EDT [facility] nRBC % 0.0 /100 WBCs 02/24/2025 1:40 PM EDT [facility] nRBC # <0.01 <0.01 10*3/uL 02/24/2025 1:40 PM EDT [facility] Blood Structure of peripheral vein / Unknown Venipuncture / Unknown 02/24/2025 1:33 PM EDT 02/24/2025 1:33 PM EDT us Sukhjinder Tena MD LAB BLOOD ORDERABLES Ivonne l Result [facility] [address] [place] [address], * (ABNORMAL) CMP - Comprehensive Metabolic Panel (02/24/2025 1:33 PM EDT) NA 139 135 - 145 mmol/L 02/24/2025 2:24 PM EDT [facility] K 3.9 3.5 - 5.3 mmol/L 02/24/2025 2:24 PM EDT [facility] Comment:1+ hemolysis, result may be falsely increased Cl 104 98 - 107 mmol/L 02/24/2025 2:24 PM EDT [facility] CO2 22 22 - 32 mmol/L 02/24/2025 2:24 PM EDT [facility] Anion Gap 13 5 - 15 02/24/2025 2:24 PM EDT [facility] Glucose 116(H) 65 - 99 mg/dL 02/24/2025 2:24 PM EDT [facility] Creatinine 0.95 0.50 - 1.20 mg/dL 02/24/2025 2:24 PM EDT [facility] Calcium 9.1 8.6 - 10.5 mg/dL 02/24/2025 2:24 PM EDT [facility] Total Protein 7.6 6.0 - 8.0 g/dL 02/24/2025 2:24 PM EDT [facility] Albumin 4.0 3.5 - 5.2 g/dL 02/24/2025 2:24 PM EDT [facility] Bilirubin, Total 0.5 0.2 - 1.2 mg/dL 02/24/2025 2:24 PM EDT [facility] Alkaline Phosphatase 88 35 - 129 U/L 02/24/2025 2:24 PM EDT [facility] AST 52(H) 10 - 40 U/L 02/24/2025 2:24 PM EDT [facility] Comment:1+ hemolysis, result may be falsely increased ALT 44(H) 10 - 40 U/L 02/24/2025 2:24 PM EDT [facility] BUN 13 7 - 23 mg/dL 02/24/2025 2:24 PM EDT [facility] eGFR 76 >=60 mL/min/1. 73m2 02/24/2025 2:24 PM EDT [facility] Comment:The estimated glomer ular filtration rate (eGFR) is calculated using a new formula developed by the NKF-ASN task force to eliminate race-based correction factors. The new formula uses serum/plasma creatinine, age, and gender to determine eGFR. A value below 60mls/min might indicate kidney disease and will be flagged. For additional information, see Cadrenas et al, Am J Kidney Dis. 2021;79(2):268- 288, A Unifying Approach for GFR estimation: Recommendations of the NKF-ASN Task Force on Reassessing the Inclusion of Race in Diagnosing Kidney Disease . Globulin, Total 3.6 2.1 - 4.2 g/dL 02/24/2025 2:24 PM EDT [facility] A/G Ratio 1.1(L) 1.5 - 3.0 02/24/2025 2:24 PM EDT [facility] Blood Structure of peripheral vein / Unknown Venipuncture / Unknown 02/24/2025 1:33 PM EDT 02/24/2025 1:33 PM EDT Sukhjinder Tena MD LAB BLOOD ORDERABLES Ivonne castro Result [facility] [address] [place] [address], [place] * HEART & VASCULAR - SCANNED (02/24/2025) Only the most recent of2 resultswithin the time period is included. Anatomical Region Laterality Modality Other us Onbase Scan Geronimo SCANNED PROCEDURES Final Resu lt from Last 3 Months Insurance MEDICARE [facility] Care Teams [employer] Dist[employer] Relationship Specialty Start Date End Date Ref, Has No Pcp Or DO NOT EDIT THIS RECORD VIA PROVIDER ON THE FLY PCP - General Element Setter 01/08/25
[2025-03-29 14:02] VITALS: BP 97/56; PULSE 58; RESP 18; O2SAT 95
--- NOTE | 2025-03-29 17:23 | PC.NURSE ---
This RN was arranging transport with CARE Team for patient to get to [facility]. When transport was arranged patient was no longer in room, patient had eloped ED. Security confirmed patient left the ED by camera Patient still had IV in right AC. Attempted to call patient no answer on phone, unable to leave message Called [facility] to notify her that she must return to [facility] No return call at this time Notified charge nurse Shlomo Keenan RN notified PD
--- NOTE | 2025-03-29 19:26 | PC.NURSE ---
This RN was arranging transport with CARE Team for patient to get to [facility]. When transport was arranged patient was no longer in room, patient had eloped ED. Security confirmed patient left the ED by camera Patient still had IV in right AC. Attempted to call patient no answer on phone, unable to leave message Called [facility] to notify her that she must return to [facility] No return call at this time Notified charge nurse Shlomo Keenan RN notified PD PD picked up patient at bus transfer station Patient requested to be brought to [facility]
== END 2025-03-29 19:26 | disposition home or self-care (01) ==
PROVIDERS: Emergency Provider Emergency Medicine; PCP Family Medicine
DX: F41.9 Anxiety disorder, unspecified (principal); Z79.899 Other long term (current) drug therapy
CPT/HCPCS: 36415; 80048; 80076; 80143; 80179; 80307; 82803; 83735; 85025; 93005; 96361; 96374; 99285; J3475; J7120

== ENCOUNTER → 2025-03-29 11:46 | Outpatient (BNV) | payer MEDICARE, MEDICAID, SELFPAY | PROVIDERS: Emergency Provider Emergency Medicine; PCP Family Medicine; Visit Provider Internal Medicine | DX: R94.31 Abnormal electrocardiogram [ECG] [EKG] (principal); R00.1 Bradycardia, unspecified | CPT/HCPCS: 93010 ==